=== PATIENT | female | born 1985 | race Hispanic/Latino ===

== ENCOUNTER 2024-07-06 15:44 | Emergency (ER) | payer BC ==
--- NOTE | 2024-07-06 17:16 | RAD REPORT ---
EXAM DESCRIPTION: US - OB Limited - 07/06/2024 5:06 pm CLINICAL HISTORY: ABD CRAMPING, COMPARISON: No comparisons FINDINGS: Limited examination was requested by emergency room. Single live intrauterine gestation is present with estimated gestational age 15 weeks 0 days. Cardiac activity is normal 144 BPM. Grossly normal amniotic fluid. Placenta appears to be developing anteriorly. Cervix appears long and closed m easuring 3.1 cm. Neither ovary well seen due to bowel gas.
[2024-07-06] MEDS ORDERED: NA CHLORIDE 0.9% 1,000 ML ONE ×2 (17:17→17:24)
[2024-07-06] MEDS ORDERED: ONDANSETRON 4 MG/2 ML VIAL ONE (17:17)
[2024-07-06 17:37] LABS: Specific Gravity 1.028 (1.005-1.030)
[2024-07-06 17:39] LABS: Specific Gravity 1.028 (1.005-1.030); Urine Bacteria None Seen /HPF (<20); Urine Bilirubin NEGATIVE (Negative); Urine Blood 1+ (Negative); Urine Clarity Turbid (Clear); Urine Color Yellow (Yellow); Urine Culture Reflex Order NOT NEEDED; Urine Glucose NEGATIVE (Negative); Urine Ketones NEGATIVE (Negative); Urine Microscopic Reflex YN ORDER UMIC; Urine Mucus Slight /HPF (None Seen); Urine Nitrite NEGATIVE (Negative); Urine Protein TRACE (Negative); Urine Urobilinogen 1+ (Normal); Urine WBC <5 /HPF (<5)
[2024-07-06 17:40] LABS: Absolute Lymphocytes (CBC) 2.6 K/uL (0.7-4.9); Absolute Monocytes 0.4 K/uL (0.1-1.3); Absolute Neutrophil 4.4 K/uL (1.8-8.0); Basophils % 0.6 % (0-1.3); Eosinophils % 0.4 % (0-4.4); Hematocrit 32.2 % (36.0-45.0); Hemoglobin 10.8 g/dL (12.0-15.0); Lymphocytes % 34.6 % (15.3-44.8); MCH 29.5 pg (27.0-35.0); MCHC 33.6 g/dL (32.0-36.0); MCV 87.7 fL (80-100); MPV 8.4 fL (7.6-11.3); Monocytes % 5.9 % (3.3-12.3); Neutrophils % 58.5 % (41.7-73.7); Platelets 345 thou/uL (152-406); RBC Red Blood Cell Count 3.67 M/uL (3.86-4.86); Red Cell Distribution Width 13.2 % (12.1-15.2)
[2024-07-06 18:10] LABS: Anion Gap 8.6 mEq/L (5.0-15.0); Potassium 3.6 mEq/L (3.5-5.1)
--- NOTE | 2024-07-06 18:33 | ER ---
Nurse's Notes [facility] Name: Kimber Otero Age: 38 yrs Sex: Female : 1985 Arrival Date: 07/06/2024 Time: 15:44 Bed 5 Private MD: Diagnosis: Nausea;Mild hyperemesis gravidarum;Weakness;UTI/ Urinary tract infection, site not specified;15 weeks gestation of Presentation: 07/06 15:54 Chief complaint: Patient states: G1, P0 14 weeks . N/V, ODELL, dizzy, fatigue, and ll1 L back pain for 1 month. Coronavirus screen: Client denies travel out of the [place] in the last 14 days. fatigue, nausea, vomiting. Client presents with at least one sign or symptom that may indicate coronavirus-19. Standard/surgical mask placed on the client. Ebola Screen: Patient denies travel to an Ebola-affected area in the 21 days before illness onset. Initial Sepsis Screen: Does the patient meet any 2 criteria? No. Patient's initial sepsis screen is negative. Does the patient have a suspected source of infection? No. Patient's initial sepsis screen is negative. Risk Assessment: Do you want to hurt yourself or someone else? Patient reports no desire to harm self or others. Onset of symptoms was June 05, 2024. 15:54 Method Of Arrival: Ambulatory ll1 15:54 Acuity: SEKOU 3 ll1 Triage Assessment: 15:57 General: Appears uncomfortable, Behavior is calm, cooperative, appropriate for age. ll1 Pain: Complains of pain in head Pain currently is 8 out of 10 on a pain scale. Quality of pain is described as aching. Neuro: Reports dizziness, headache weakness. GI: Reports nausea, vomiting. HOME HELP AIDE: 17:05 1, Full Term 0, Premature 0, 0, Living 0, unknown aa5 Historical: - Allergies: 15:57 No Known Allergies; ll1 - Home Meds: 15:57 levothyroxine oral [Active]; ll1 - PMHx: 15:57 Hypothyroidism; ll1 - PSHx: 15:57 Gastric sleeve; ll1 - Immunization history:: Adult Immunizations up to date. - Infectious Disease History:: Denies. - Social history:: Smoking status: Patient denies any tobacco usage or history of. - Family history:: not pertinent. Screenin:05 [facility] ED Fall Risk Assessment (Adult) History of falling in the last 3 months, aa5 including since admission No falls in past 3 months (0 pts) Confusion or Disorientation No (0 pts) Intoxicated or Sedated No (0 pts) Impaired Gait No (0 pts) Mobility Assist Device Used No (0 pt) Altered Elimination No (0 pt) Score/Fall Risk Level 0 - 2 = Low Risk Oriented to surroundings, Maintained a safe environment, Educated pt \T\ family on fall prevention, incl call for assistance when getting out of bed. Abuse screen: Denies threats or abuse. Nutritional screening: No deficits noted. Tuberculosis screening: No symptoms or risk factors identified. Assessment: 16:10 Reassessment: Pt at US. aa5 17:02 Reassessment: Pt back from US . aa5 17:05 General: Appears comfortable, Behavior is calm, cooperative, Reports fatigue for 1 aa5 month . Pain: Complains of pain in left low back Pain does not radiate. Pain currently is 6 out of 10 on a pain scale. Quality of pain is described as aching, Pain began 1 month ago Is intermittent. Neuro: Level of Consciousness is awake, alert, obeys commands, Oriented to person, place, time, situation. Cardiovascular: Patient's skin is warm and dry. Respiratory: Airway is patent Respiratory effort is even, unlabored, Respiratory pattern is regular, symmetrical. GI: Abdomen is round Reports nausea, Patient currently denies abdominal pain. : No signs and/or symptoms were reported regarding the genitourinary system. EENT: No signs and/or symptoms were reported regarding the EENT system. Derm: Skin is pink, warm \T\ dry. Musculoskeletal: Range of motion: intact in all extremities. 18:26 Reassessment: Patient is alert, oriented x 3, equal unlabored respirations, skin aa5 warm/dry/pink. Patient states feeling better. Patient states symptoms have improved. GI: Patient currently denies nausea. Vital Signs: 15:54 BP 120 / 80; Pulse 80; Resp 17; Temp 97.3; Pulse Ox 100% ; Weight 72.57 kg; Height 5 ll1 ft. 2 in. ; Pain 8/10; 18:20 BP 132 / 74; Pulse 70; Resp 18 S; Pulse Ox 99% on R/A; aa5 15:54 Body Mass Index 29.26 (72.57 kg, 157.48 cm) ll1 15:54 Pain Scale: Adult ll1 ED Course: 15:47 Patient arrived in ED. ra3 15:55 Triage completed. ll1 15:57 Ayad Oropeza MD is Attending Physician. [facility] 15:57 Arm band placed on Patient placed in an exam room, on a stretcher. ll1 16:19 Leyda Krishna, RN is Primary Nurse. aa5 17:05 Patient has correct armband on for positive identification. Bed in low position. Call aa5 light in reach. Side rails up X2. Pulse ox on. NIBP on. 17:05 Initial lab(s) drawn, by me, sent to lab. Inserted saline lock: 20 gauge in right aa5 antecubital area, using aseptic technique. Blood collected. Flushed with 10 mL NS. 17:08 US OB Limited In Process Unspecified. EDMS 17:08 TRANSVAG OB CERVIX ASSESSMENT In Process Unspecified. EDMS 18:27 No provider procedures requiring assistance completed. aa5 19:13 Provided Education on: post er care. bm8 19:13 IV discontinued, intact, bleeding controlled, No redness/swelling at site. Pressure bm8 dressing applied. Administered Medications: 17:15 Drug: NS 0.9% IV 1000 ml IV at 1 bolus Per protocol; 1000 mL bolus Route: IV; Rate: 1 aa5 bolus; Site: right antecubital; 18:25 Follow up: IV Status: Completed infusion; IV Intake: 1000ml aa5 17:15 Drug: Ondansetron IVP 4 mg IVP once; over 2 minutes Route: IVP; Site: right antecubital;aa5 17:30 Follow up: Response: No adverse reaction aa5 17:28 Drug: NS 0.9% IV 1000 ml IV at 1 bolus Per protocol; 1000 mL bolus Route: IV; Rate: 1 aa5 bolus; Site: right antecubital; 18:26 Follow up: IV Status: Completed infusion; IV Intake: 1000ml aa5 19:14 Drug: Rocephin IV 1 grams IV at per protocol once; Given slow IV push per pharmacy bm8 instructions Route: IV; Rate: per protocol; Site: right antecubital; 19:14 Follow up: Response: No adverse reaction; Medication Administered at Departure; IV bm8 Status: Completed infusion; IV Intake: 50ml 19:14 Drug: Cefdinir PO Suspension 300 mg PO once Route: PO; bm8 19:15 Follow up: Response: No adverse reaction bm8 Medication: 18:27 VIS not applicable for this client. aa5 Intake: 18:25 IV: 1000ml; Total: 1000ml. aa5 18:26 IV: 1000ml; Total: 2000ml. aa5 19:14 IV: 50ml; Total: 2050ml. bm8 Outcome: 18:32 Discharge ordered by . lucina 19:13 Discharged to home ambulatory, with family, bm8 19:13 Condition: stable 19:13 Discharge instructions given to patient, family, Instructed on discharge instructions, follow up and referral plans. no drinking with medication, no driving heavy equipment, medication usage, safety practices, Demonstrated understanding of instructions, follow-up care, medications, Prescriptions given X 3, 19:19 Patient left the ED. bm8 Signatures: Dispatcher [employer] EDMS Ayad Oropeza MD MD cha Calderon, Audri, RN RN aa5 Derrell Pleitez, RN RN [email or web address] Radha Cook ra3 Jorge A Jesus, RN RN bm8
--- NOTE | 2024-07-06 18:33 | EDPHYS ---
Physician Documentation [facility] Name: Kimber Otero Age: 38 yrs Sex: Female : 1985 Arrival Date: 07/06/2024 Time: 15:44 Bed 5 Private MD: ED Physician Ayad Oropeza HPI: 07/06 17:24 This 38 yrs old Female presents to ER via Ambulatory with complaints of lucina Nausea, Headache, Back Pain. 17:24 The patient presents to the emergency department with nausea, vomiting, that is lucina intermittent. Onset: The symptoms/episode began/occurred 1 week(s) ago. Possible causes: unknown. The symptoms are aggravated by nothing. The symptoms are alleviated by nothing. Associated signs and symptoms: Pertinent positives: nausea, vomiting. Severity of symptoms: At their worst the symptoms were mild in the emergency department the symptoms are unchanged. The patient has experienced similar episodes in the past, several times. STAIN DIPPER: 17:05 1, Full Term 0, Premature 0, 0, Living 0, unknown aa5 Historical: - Allergies: 15:57 No Known Allergies; ll1 - Home Meds: 15:57 levothyroxine oral [Active]; ll1 - PMHx: 15:57 Hypothyroidism; ll1 - PSHx: 15:57 Gastric sleeve; ll1 - Immunization history:: Adult Immunizations up to date. - Infectious Disease History:: Denies. - Social history:: Smoking status: Patient denies any tobacco usage or history of. - Family history:: not pertinent. ROS: 17:24 Constitutional: Negative for fever, chills, and weight loss, Eyes: Negative for injury, lucina pain, redness, and discharge, ENT: Negative for injury, pain, and discharge, Neck: Negative for injury, pain, and swelling, Cardiovascular: Negative for chest pain, palpitations, and edema, Respiratory: Negative for shortness of breath, cough, wheezing, and pleuritic chest pain, Abdomen/GI: Negative for abdominal pain, nausea, vomiting, diarrhea, and constipation, Back: Negative for injury and pain, : Negative for injury, bleeding, discharge, and swelling, MS/Extremity: Negative for injury and deformity, Skin: Negative for injury, rash, and discoloration, Psych: Negative for depression, anxiety, suicide ideation, homicidal ideation, and hallucinations, Allergy/Immunology: Negative for hives, rash, and allergies, Endocrine: Negative for neck swelling, polydipsia, polyuria, polyphagia, and marked weight changes, 17:24 Neuro: Positive for headache, Exam: 17:26 Constitutional: This is a well developed, well nourished patient who is awake, alert, lucina and in no acute distress. Head/Face: Normocephalic, atraumatic. Eyes: Pupils equal round and reactive to light, extra-ocular motions intact. Lids and lashes normal. Conjunctiva and sclera are non-icteric and not injected. Cornea within normal limits. Periorbital areas with no swelling, redness, or edema. ENT: Nares patent. No nasal discharge, no septal abnormalities noted. Tympanic membranes are normal and external auditory canals are clear. Oropharynx with no redness, swelling, or masses, exudates, or evidence of obstruction, uvula midline. Mucous membranes moist. Neck: Trachea midline, no thyromegaly or masses palpated, and no cervical lymphadenopathy. Supple, full range of motion without nuchal rigidity, or vertebral point tenderness. No Meningismus. Chest/axilla: Normal chest wall appearance and motion. Nontender with no deformity. No lesions are appreciated. Cardiovascular: Regular rate and rhythm with a normal S1 and S2. No gallops, murmurs, or rubs. Normal PMI, no JVD. No pulse deficits. Respiratory: Lungs have equal breath sounds bilaterally, clear to auscultation and percussion. No rales, rhonchi or wheezes noted. No increased work of breathing, no retractions or nasal flaring. Back: No spinal tenderness. No costovertebral tenderness. Full range of motion. Female : Normal external genitalia. Skin: Warm, dry with normal turgor. Normal color with no rashes, no lesions, and no evidence of cellulitis. MS/ Extremity: Pulses equal, no cyanosis. Neurovascular intact. Full, normal range of motion. Neuro: Awake and alert, GCS 15, oriented to person, place, time, and situation. Cranial nerves II-XII grossly intact. Motor strength 5/5 in all extremities. Sensory grossly intact. Cerebellar exam normal. Normal gait. Psych: Awake, alert, with orientation to person, place and time. Behavior, mood, and affect are within normal limits. 17:26 Abdomen/GI: Inspection: gravid appearance, is noted, Bowel sounds: normal, Palpation: abdomen is soft and non-tender, Liver: no appreciated palpable abnormalities, Hernia: not appreciated, Vital Signs: 15:54 BP 120 / 80; Pulse 80; Resp 17; Temp 97.3; Pulse Ox 100% ; Weight 72.57 kg; Height 5 ll1 ft. 2 in. ; Pain 8/10; 18:20 BP 132 / 74; Pulse 70; Resp 18 S; Pulse Ox 99% on R/A; aa5 15:54 Body Mass Index 29.26 (72.57 kg, 157.48 cm) ll1 15:54 Pain Scale: Adult ll1 MDM: 15:57 Patient medically screened. [facility] 17:28 Differential diagnosis: viral gastroenteritis, gastroenteritis. Data reviewed: vital lucina signs, nurses notes, lab test result(s), radiologic studies, ultrasound. Consideration of Admission/Observation Escalation of care including admission/observation considered. I considered the following discharge prescriptions or medication management in the emergency department Medications were administered in the Emergency Department. See MAR. Independent interpretation of the following test(s) in the Emergency Department Radiology Department Ultrasound: My interpretation is ob usg. Test considered but Not performed: EKG: no ekg. Historians other than the Patient: Spouse/Significant Other: well informed. Care significantly affected by the following chronic conditions: 14 week iup, hypothyroid. 07/06 15:59 Order name: Abo/rh Typing; Complete Time: 18:28 [facility] 07/06 15:59 Order name: Basic Metabolic Panel; Complete Time: 18:28 [facility] 07/06 15:59 Order name: CBC with Diff; Complete Time: 18:28 [facility] 07/06 15:59 Order name: Test, Urine; Complete Time: 18:28 [facility] 07/06 15:59 Order name: Quantitative Hcg; Complete Time: 18:28 [facility] 07/06 15:59 Order name: Urinalysis w/ reflexes; Complete Time: 18:28 [facility] 07/06 18:30 Order name: Urine Culture [facility] 07/06 15:59 Order name: US OB Limited; Complete Time: 17:24 [facility] 07/06 16:43 Order name: TRANSVAG OB CERVIX ASSESSMENT EDNY 07/06 15:59 Order name: IV Saline Lock; Complete Time: 17:16 [facility] 07/06 15:59 Order name: Labs collected and sent; Complete Time: 17:16 lucina 07/06 15:59 Order name: NPO; Complete Time: 17:16 lucina Administered Medications: 17:15 Drug: NS 0.9% IV 1000 ml IV at 1 bolus Per protocol; 1000 mL bolus Route: IV; Rate: 1 aa5 bolus; Site: right antecubital; 18:25 Follow up: IV Status: Completed infusion; IV Intake: 1000ml aa5 17:15 Drug: Ondansetron IVP 4 mg IVP once; over 2 minutes Route: IVP; Site: right antecubital;aa5 17:30 Follow up: Response: No adverse reaction aa5 17:28 Drug: NS 0.9% IV 1000 ml IV at 1 bolus Per protocol; 1000 mL bolus Route: IV; Rate: 1 aa5 bolus; Site: right antecubital; 18:26 Follow up: IV Status: Completed infusion; IV Intake: 1000ml aa5 19:14 Drug: Rocephin IV 1 grams IV at per protocol once; Given slow IV push per pharmacy bm8 instructions Route: IV; Rate: per protocol; Site: right antecubital; 19:14 Follow up: Response: No adverse reaction; Medication Administered at Departure; IV bm8 Status: Completed infusion; IV Intake: 50ml 19:14 Drug: Cefdinir PO Suspension 300 mg PO once Route: PO; bm8 19:15 Follow up: Response: No adverse reaction bm8 Disposition Summary: 07/06/24 18:32 Discharge Ordered Notes: Location: Home lucina Problem: new lucina Symptoms: have improved lucina Condition: Stable lucina Diagnosis - Nausea lucina - Mild hyperemesis gravidarum lucina - Weakness lucina - UTI/ Urinary tract infection, site not specified lucina - 15 weeks gestation of lucina Followup: lucina - With: Private Physician - When: 2 - 3 days - Reason: Recheck today's complaints, Continuance of care, Re-evaluation by your physician Discharge Instructions: - Discharge Summary Sheet lucina - Hyperemesis Gravidarum lucina - Morning Sickness, [id number]-Jihm lucina - Nausea and Vomiting, Adult lucina - Weakness lucina - Nausea and Vomiting, Adult, [id number]-[id number] lucina - Urinary Tract Infection, Adult, Ocul-dc-[id number] lucina - Second Trimester of lucina - Weakness, Nmqq-[id number] lucina - Second Trimester of , Lgkw-ju-Psau lucina Forms: - Medication Reconciliation Form lucina - Antibiotic Education lucina - Prescription Opioid Use lucina - Patient Portal Instructions [facility] - Leadership Thank You Letter [facility] Prescriptions: - Diclegis 10-10 mg Oral tablet, delayed release (enteric coated) - take 1 tablet ORAL route 3 times per day; 60 tablet; Refills: 0, Product [facility] Selection Permitted - ondansetron 4 mg Oral Tablet,disintegrating - take 1 tablet ORAL route every 8 hours for 5 days; 24 tablet; Refills: 0, [facility] Product Selection Permitted - cefdinir 300 mg Oral capsule - take 1 capsule ORAL route 2 times per day for 7 days; 14 capsule; Refills: 0, [facility] Product Selection Permitted Signatures: Dispatcher [employer] EDAyad Salazar MD MD cha Calderon, Audri, RN RN aa5 Derrell Pleitez RN RN ll1 Jorge A Jesus, RN RN bm8 Corrections: (The following items were deleted from the chart) 15:59 15:59 ABO/RH TYPING+BB.LAB.BRZ ordered. EDMS EDMS 15:59 15:59 BASIC METABOLIC PANEL+C.LAB.BRZ ordered. EDMS EDMS 15:59 15:59 CBC+H.LAB.BRZ ordered. EDMS EDMS 15:59 15:59 Test, Urine+UC.LAB.BRZ ordered. EDMS EDMS 15:59 15:59 QUANTITATIVE HCG+C.LAB.BRZ ordered. EDMS EDMS 15:59 15:59 Urinalysis+U.LAB.BRZ ordered. EDMS EDMS
[2024-07-06] MEDS ORDERED: CEFTRIAXONE 1000 MG/VIAL ONE (19:06)
[2024-07-06] MEDS ORDERED: CEFDINIR 300 MG CAP PO ONE (19:07)
[2024-07-06 19:49] VITALS: TEMP 97.3
[2024-07-06 19:51] VITALS: BP 132/74; O2SAT 99
== END 2024-07-06 19:19 | disposition home or self-care (01) ==
LOC: ER 15:44
DX: O21.0 Mild hyperemesis gravidarum (principal); O23.42 Unspecified infection of urinary tract in pregnancy, second trimester; N39.0 Urinary tract infection, site not specified; O99.282 Endocrine, nutritional and metabolic diseases complicating pregnancy, second trimester; E03.9 Hypothyroidism, unspecified; Z3A.15 15 weeks gestation of pregnancy
CPT/HCPCS: 96361; 87088; 85025; 81001; 87086; 80048; 36415; 86900; 81025; 86901; 84702; 76815; 76817; 96375; 96374; 99284; J2405; J7030 ×2; J0696